=== PATIENT | male | born 1975 | race Caucasian/White ===

== ENCOUNTER 2025-02-14 11:25 | Emergency (ER) | payer MEDICAID, SELFPAY ==
--- NOTE | ~2025-02-14 | XR_ITS ---
EXAMINATION: XR CHEST CLINICAL INFORMATION: chest pain COMPARISON: July 02, 2012 TECHNIQUE: 2 views of the chest were obtained. FINDINGS: Hyperinflated lungs. Bilateral apical lung scarring. No consolidation, pleural effusion or pneumothorax. Cardiomediastinal silhouette size is normal. Mild multilevel thoracic spondylosis. XR/XR chest 2V IMPRESSION: No acute airspace disease. . Electronically signed by: Abhishek Maurer MD 02/14/2025 12:49 PM EDT
[2025-02-14 12:06] VITALS: BP 171/91; PULSE 103; RESP 18; TEMP 36.5; O2SAT 98; BMI 17.9
--- NOTE | 2025-02-14 12:09 | ED.GENADULT ---
HPI - General Adult General Chief complaint: Chest Pain Stated complaint: under left arm pain Related Data Allergies Allergy/AdvReac Type Severity Reaction Status Date / Time shellfish derived Allergy Unknown Anaphylaxis, Verified 02/14/25 12:08 Itching, Swelling PMFSH Social History Social History Advance Directives: No Advance Directives Information Provided: No Physical Exam ED Vital Signs: Vital Signs - 24 hr 02/14/25 12:06 Temperature 97.7 F Pulse Rate 103 H Respiratory Rate 18 Blood Pressure 171/91 H Pulse Oximetry 98 Oxygen Delivery Method Room Air BMI result Body Mass Index 17.9 Course Course Course Narrative: RME performed by Juliet Louie PA-C. Patient is a 49 year old assigned male at presenting to the emergency department with severe left axillary pain. Patient states he had a sudden episode of left axillary pain that caused him to be cool and clammy that has now resolved. Patient's limited physical exam performed in triage showed a comfortable individual in no acute distress, normal sounding voice, no respiratory distress. Detailed physical exam and review of systems are deferred to the electrical systems design engineer. EKG, labs, imaging, and swabs ordered. Patient placed back in the waiting room pending room availability and results. Patient left without completing treatment. Patient's blood work was unremarkable. Patient's EKG was unremarkable. Patient left the department without completing treatment. Patient left the department before myself or any of the other emergency department clinicians could explain to or review with the patient; physical exam findings, test results, need or lack there of for additional testing, need or lack there of for a procedure to be performed, need or lack there of for hospital admission / transfer, need or lack there of for prescription medication, treatment options, or a treatment plan. Medical Decision Making Lab Data 02/14/25 12:20 02/14/25 12:20 Labs: Lab Results 02/14/25 Range/Units 12:20 WBC 5.0 (4.8-10.8) X10*3/uL RBC 4.74 (4.60-5.80) X10*6/uL Hgb 14.1 (14.0-18.0) g/dl Hct 41.8 L (42.0-52.0) % MCV 88.2 (80.0-98.0) fL MCH 29.7 (27.0-33.0) pg MCHC 33.7 (31.0-36.0) g/dl RDW 13.9 (11.0-16.0) % Plt Count 223 (160-400) X10*3/uL MPV 8.5 L (9.4-12.4) fL Immature Gran % (Auto) 0.4 (0.0-0.4) % Neut % (Auto) 51.0 (45-73) % Lymph % (Auto) 37.3 (20-40) % Bracken % (Auto) 8.3 (2-11) % Eos % (Auto) 2.4 (0-4) % Baso % (Auto) 0.6 (0-2) % Lymph # (Auto) 1.9 (1.2-4.9) X10*3/uL Bracken # (Auto) 0.4 (0.1-1.2) X10*3/uL Eos # (Auto) 0.1 (0.0-0.4) X10*3/uL Baso # (Auto) 0.0 (0.0-0.2) X10*3/uL Abs Immat Gran (auto) 0.02 (0.00-0.03) X10*3/uL Absolute Neuts (auto) 2.5 (2.0-8.3) x10*3/uL Absolute Nucleated RBC 0.000 (0.0-0.012) X10*3/uL Nucleated RBC % (auto) 0.0 (0.0-0.2) /100WBC PT 14.6 H (10.9-12.4) SEC INR 1.3 H (0.9-1.1) Sodium 138 (135-145) mmol/L Potassium 3.7 (3.3-5.1) mmol/L Chloride 104 (96-108) mmol/L Carbon Dioxide 28 (22-29) mmol/L Anion Gap 10 L (12-20) BUN 15 (9-16) mg/dL Creatinine 0.91 (0.5-1.4) mg/dL Estim Creat Clear Calc 81.3 Estimated GFR > 60 Random Glucose 101 (60-115) mg/dL Calcium 9.1 (8.4-10.2) mg/dL Magnesium 2.0 (1.6-2.6) mg/dL Total Bilirubin 0.4 (0.0-1.0) mg/dL AST 32 (5-37) U/L ALT 15 (0-40) U/L Alkaline Phosphatase 62 (39-117) U/L Troponin I High Sens < 2.7 (<3.5-35.0) ng/L Total Protein 7.0 (6.5-8.0) g/dL Albumin 4.2 (3.5-5.0) g/dL Influenza Type A (PCR) NEGATIVE (Negative) Influenza Type B (PCR) NEGATIVE (Negative) RSV RNA Qual (PCR) NEGATIVE (Negative) SARS-CoV-2 RNA (RT-PCR) NEGATIVE (Negative) Discharge Plan Discharge Clinical Impression: Armpit pain Patient Disposition: Left W/O Completing Treatment Discharge Date/Time: 02/14/25 19:32
--- NOTE | 2025-02-14 12:10 | ECG_ITS ---
Test Reason : CHEST PAIN Blood Pressure : */* mmHG Vent. Rate : 70 BPM Atrial Rate : 70 BPM P-R Int : 162 ms QRS Dur : 88 ms QT Int : 386 ms P-R-T Axes : 84 88 55 degrees QTcB Int : 416 ms Normal sinus rhythm Septal infarct , age undetermined Abnormal ECG When compared with ECG of 10-Jul-2012 04:07, changes of septal infarct present Referred By: Generic ED Physician Electronically Signed By: DANIA GUSTAFSON
[2025-02-14 12:21] LABS: MANUAL DIFF FLAG NO
[2025-02-14 12:24] LABS: Basophils Percent Auto 0.6 % (0-2); Eosinophils Absolute Auto 0.1 X10*3/uL (0.0-0.4); Eosinophils Percent Auto 2.4 % (0-4); Hematocrit 41.8 % (42.0-52.0); Hemoglobin 14.1 g/dl (14.0-18.0); Imm Gran Abs Auto 0.02 X10*3/uL (0.00-0.03); Imm Gran Pct Auto 0.4 % (0.0-0.4); Lymphocytes Absolute Auto 1.9 X10*3/uL (1.2-4.9); Lymphocytes Percent Auto 37.3 % (20-40); Mean Corpuscular HGB Conc 33.7 g/dl (31.0-36.0); Mean Corpuscular Hemoglobin 29.7 pg (27.0-33.0); Mean Corpuscular Volume 88.2 fL (80.0-98.0); Mean Platelet Volume 8.5 fL (9.4-12.4); Monocytes Absolute Auto 0.4 X10*3/uL (0.1-1.2); Monocytes Percent Auto 8.3 % (2-11); Neutrophils Absolute Auto 2.5 x10*3/uL (2.0-8.3); Platelet Count 223 X10*3/uL (160-400); Red Blood Count 4.74 X10*6/uL (4.60-5.80); Red Cell Distribution Width 13.9 % (11.0-16.0)
[2025-02-14 12:30] LABS: INTERNATIONAL NORM RATIO 1.3 (0.9-1.1); Prothrombin Time 14.6 SEC (10.9-12.4)
[2025-02-14 12:48] LABS: Alanine Aminotransferase 15 U/L (0-40); Albumin Level 4.2 g/dL (3.5-5.0); Alkaline Phosphatase 62 U/L (39-117); Anion Gap 10 (12-20); Aspartate Amino Transferase 32 U/L (5-37); Bilirubin Total 0.4 mg/dL (0.0-1.0); Blood Urea Nitrogen 15 mg/dL (9-16); Calcium 9.1 mg/dL (8.4-10.2); Carbon Dioxide 28 mmol/L (22-29); Chloride 104 mmol/L (96-108); Creatinine Clr Calc Pharmacy 81.3; Estimated Glomerular Filt Rate > 60; Glucose Random 101 mg/dL (60-115); Potassium 3.7 mmol/L (3.3-5.1); Sodium 138 mmol/L (135-145)
[2025-02-14 12:55] LABS: Troponin-I High Sensitivity < 2.7 ng/L (<3.5-35.0)
[2025-02-14 13:02] LABS: Influenza A PCR NEGATIVE (Negative); Influenza B PCR NEGATIVE (Negative); Resp Syncy Virus RNA Qual PCR NEGATIVE (Negative); SARS COV2 PCR INHOUSE NEGATIVE (Negative)
--- OUTSIDE RECORDS SUMMARY | 2025-02-14 19:27 | XMS_ITS | Data Portability ---
Author Organization [place] - [employer] [facility], [facility] Cloth Beamer Address [address] [facility] [place] [address] Care Team Providers Care Timber Packer Name Role Phone KALPESH MOONEY Primary Care Provider Assessment No assessment recorded. Plan of Treatment Reminders Order Date Submit Date Provider Last Modified By Organization Details Last Modified Time Details Appointments None recorded. Lab lyme igg + igm Ab, western blot, serum 2015 016 [facility] (Lab), [address] [place], [address], 6 16:03:24 lyme disease C6 peptide Ab, serum 2015 016 [facility] (Lab), [address] [place], [address], 6 11:31:46 tick-borne disease panel 2015 016 john nicole [facility] (Lab), [address] [place], [address], 6 14:50:00 PSA, serum or plasma 2015 016 [facility] (Lab), [address] [place], [address], 6 14:50:10 CBC 2015 016 [facility] (Lab), [address] [place], [address], 6 16:55:12 CMP, serum or plasma 2015 016 [facility] (Lab[facility] [address] [facility] [address], [place], [address], 6 17:17:52 culture, urine 2015 016 [facility] (Lab), [address] [facility] [address], [place], [address], 6 11:46:03 urinalysis, microscopic 2015 016 john nicole [facility] (Lab), [address], [place], [address], 6 14:50:00 TSH, serum or plasma 2015 016 [facility] (Lab), [address] [facility] [address], [place], [address], 6 17:17:55 vitamin B12, serum 2015 016 [facility] (Lab), [address] [facility] [address], [place], [address], 6 17:17:54 vitamin B1 (thiamine), serum 2015 016 [facility] (Lab), [address], [place], [address], 6 10:07:49 vitamin D, 25-hydroxy, total, serum 2015 016 [facility] (Lab), [address] [facility] [address], [place], [address], 6 17:17:56 HbA1c (hemoglobin A1c), blood 2015 016 [facility] (Lab), [address], [place], [address], 6 18:02:33 lipid panel, serum 2015 016 [facility] (Lab), [address], [place], [address], 6 17:17:53 Referral neurologist referral - 41 y/o male with chronic neck pain and finger numbness, abnormal neck XR, insurance denied MRI would appreciate evaluation. 2015 016 [facility] Neurology, [address] [place], [address], 7 11:43:53 Procedures None recorded. Surgeries None recorded. Imaging MRI, cervical spine, w/o contrast - 41 y/o male with several years of chronic neck pain with BUE numbness and pain intermitten tly, xrays with degenerativ e disc disease at C45-6, please evaluate. [address] (Radiology), [address] [place], [address], 6 14:18:00 x-ray, cervical spine, complete - 41 y/o make with chronic neck pain, concern for spinal stenosis, please evaluate. [address] (Radiology), [address] [place], [address], 6 07:46:36 Medication Orders sumatriptan 50 mg tablet 2015 016 [id number], [address], [place], [id number], 6 04:18:30 ondansetron 4 mg disintegrat ing tablet 2015 016 [facility], [address], [place], [id number], 6 04:16:59 ergotamine 1 mg-caffeine 100 mg tablet 2015 016 [facility], [address], [place], [id number], 6 04:16:49 ibuprofen 800 mg tablet 2015 016 [id number], [address], [place], [id number], 6 04:16:57 Flomax 0.4 mg capsule 2015 016 [email or web address], [address], [place], [id number], 6 10:40:51 Patient TargetsNo targets recorded. Patient Instructions Encounter Date Encounter Id Patient Instructions Last Modified By Organization Details Last Modified Time 08/01/2016 [id number] Will return to office if symptoms do not improve with treatment. Requested Rx for ibuprofen. Has appt with in 4 days. Note given for work. [email or web address] Not available 08/01/2016 11:53:25 Reason for Referral Neurologist Referral for Chr onic neck pain 41 y/o male with chronic neck pain and finger numbness, abnormal neck XR, insurance denied MRI would appreciate evaluation. Referring Physician: Kalpesh Mooney, Family Medicine, Encounter Date: 05/06/2016 Results Created Date Observation Date Name Description Value Unit Range Abnormal Flag Note LastModifiedBy Organization Detail LastModifiedTime 05/06/20 16 05/06/2016 urina lysis , dipst ick urine color YELLOW yellow normal Not Available [address] [facility] Drawing Station [address] [place] [address], [address], 05/06/2016 16:44:16 05/06/2005/06/2016 urina lysis , dipst ick urine clarity CLEAR clear normal Not Available [address] [facility] [address] Drawing Station [address] [place] [address], [address], 05/06/2016 16:44:16 05/06/2005/06/2016 urina lysis , dipst ick urine glucose NEGATI VE negati ve normal Not Available [address] [facility] [facility] [address] [place] [address], [address], 05/06/2016 16:44:16 05/06/20 16 05/06/2016 urina lysis , dipst ick urine ketone NEGATI VE negati ve normal Not Available [address] [place] [address], [address], 05/06/2016 16:44:16 05/06/2005/06/2016 urina lysis , dipst ick urine protein NEGATI VE negati ve normal Not Available [address] [place] [address], [address], 05/06/2016 16:44:16 05/06/2005/06/2016 urina lysis , dipst ick urine nitrate NEGATI VE negati ve normal Not Available [address] [place] [address], [address], 05/06/2016 16:44:16 05/06/2005/06/2016 urina lysis , dipst ick urine bilirubin NEGATI VE negati ve normal Not Available [address] [place] [address], [address], 05/06/2016 16:44:16 05/06/2005/06/2016 urina lysis , dipst ick urine hemoglobin NEGATI VE negati ve normal Not Available [address] [place] [address], [address], 05/06/2016 16:44:16 05/06/2005/06/2016 urina lysis , dipst ick urine specific gravity 1.022 1.001> 1.030 normal Not Available [address] [place] [address], [address], 05/06/2016 16:44:16 05/06/2005/06/2016 urina lysis , dipst ick urine pH 6.5 4.5-8. 5 normal Not Available [address] [place] [address], [address], 05/06/2016 16:44:16 05/06/2005/06/2016 urina lysis , dipst ick urine urobilinogen 0.2 E.U./ dL 0.2-1. 0 normal Not Available [address] [place] [address], 29[address], 05/06/2016 16:44:16 05/06/20 16 05/06/2016 urina lysis , dipst ick urine leukocyte esterase NEGATI VE negati ve normal Not Available [address] [place] [address], 8[address], 05/06/2016 16:44:16 05/06/20 16 05/06/2016 CBC WBC count 3.9 K/mm3 4.0-11 .0 low Not Available [address] [place] [address] Draw[address] [place] [address], [address], 05/06/2016 16:55:12 05/06/2005/06/2016 CBC red blood cell count 4.28 M/uL 4.20-5 .80 normal Not Available [address] [place] [address], [address], 05/06/2016 16:55:12 05/06/20 16 05/06/2016 CBC hemoglobin 12.7 gm/dL 13.0-1 7.3 low Not Available [address] [place] [address], [address], 05/06/2016 16:55:12 05/06/2005/06/2016 CBC hematocrit 39.6 % 40.0-5 4.0 low Not Available [address] [place] [address], [address], 05/06/2016 16:55:12 05/06/2005/06/2016 CBC MCV 92.6 fL 84-99 normal Not Available [address] [place] [address], [address], 05/06/2016 16:55:12 05/06/2005/06/2016 CBC RDW 13.9 % 11.5-1 6.0 normal Not Available [address] [place] [address], [address], 05/06/2016 16:55:12 05/06/2005/06/2016 CBC plt count 240 K/uL 140-44 0 normal Not Available [address] [place] [address] [place] [address], [address], 05/06/2016 16:55:12 05/06/20 16 05/06/2016 CBC ne# 2.2 K/uL 1.5-7. 5 normal Not Available [address] [place] [address] Drawing Station [address] [place] [address], [address], 05/06/2016 16:55:12 05/06/2005/06/2016 CBC ly# 1.4 K/uL 1.0-4. 5 normal Not Available [address] [place] [address] Drawing [address] [place] [address], [address], 05/06/2016 16:55:12 05/06/2005/06/2016 CBC MO# 0.2 K/uL 0.0-0. 8 normal Not Available [address] [place] [address] Drawing Station [address] [place] [address], [address], 05/06/2016 16:55:12 05/06/2005/06/2016 CBC eo# 0.1 K/uL 0.0-0. 4 normal Not Available [address] [place] [address] Drawing [address] [place] [address], 36[address], 05/06/2016 16:55:12 05/06/2005/06/2016 CBC ba# 0.0 K/uL 0.0-0. 2 normal Not Available [address] [place] [address] Drawing [address] [place] [address], 378[address], 05/06/2016 16:55:12 05/06/2005/06/2016 CBC ne% 55.1 % normal Not Available [address] [place] [address] Drawing [address] [place] [address], 320[address], 05/06/2016 16:55:12 05/06/2005/06/2016 CBC ly% 36.0 % normal Not Available [address] [place] [address] Draw[address] [place] [address], [address], 05/06/2016 16:55:12 05/06/20 16 05/06/2016 CBC MO% 6.2 % normal Not Available [address] [place] [address] Draw[address] [place] [address], [address], 05/06/2016 16:55:12 05/06/20 16 05/06/2016 CBC eo% 1.9 % normal Not Available [address] [place] [address], [address], 05/06/2016 16:55:12 05/06/20 16 05/06/2016 CBC ba% 0.8 % normal Not Available [address] [place] [address], [address], 05/06/2016 16:55:12 05/06/20 16 05/06/2016 CMP, serum or plasm a glucose 69 mg/dL 70-109 low Not Available [address] [place] [address], [address], 05/06/2016 17:17:52 05/06/20 16 05/06/2016 CMP, serum or plasm a BUN 17 mg/dL 6-21 normal Not Available [address] [place] [address], [address], 05/06/2016 17:17:52 05/06/20 16 05/06/2016 CMP, serum or plasm a creatinine 0.87 mg/dL 0.0-1. 3 normal Not Available [address] [place] [address], [address], 05/06/2016 17:17:52 05/06/20 16 05/06/2016 CMP, serum or plasm a glomerular filtration rate > 60 normal Units : mL/mi n/1.7 3 m2 Estim ated GFR (eGFR ) shoul d not be used for patie nts with acute kidne y injur y or ESRD (crea tinin e shoul d be at stead y state and stabl e to use). eGFR is calcu lated using the 2009 CKD-E PI creat inine equat ion, which is now the recom caitlin d equat ion to estim ate GFR based on creat inine per lates t KDIGO (Kidn ey Disea se Impro ving Globa l Outco mes) Guide lines . KDIGO recom mends CKD now be class ified based on cause , GFR categ ory, and album inuri a categ ory. GFR categ ories will not be repor griffin by the lab for G1 or G2 (eGFR >60). GFR categ ories sherylul d be assig filemon as: eGFR 45-59 = G3a (mild ly to moder ately decre ased) , eGFR 30-44 = G3b (mode ratel y to sever elisa decre ased) , eGFR 15-29 G4 (ross rely decre ased) , eGFR< 15 G5 (kidn ey failu re). Not Available [address] [place] [address] Drawing [address] [place] [address], [address], 05/06/2016 17:17:52 05/06/20 16 05/06/2016 CMP, serum or plasm a calcium 8.6 mg/dL 8.3-9. 9 normal Effec tive 5: Pleas e note the refer ence range for this test has rodriguez ed. Not Available [address] [place] [address], [address], 05/06/2016 17:17:52 05/06/2005/06/2016 CMP, serum or plasm a total protein 6.7 g/dL 6.2-8. 2 normal Effec tive 5: Pleas e note the refer ence range for this test has rodriguez ed. Exact pedia tric range s are not estab lishe d, but tend to be lower than adult range s. Not Available [address] [place] [address], [address], 05/06/2016 17:17:52 05/06/2005/06/2016 CMP, serum or plasm a albumin 3.9 g/dL 2.9-4. 7 normal Effec tive 015: The Album in metho d rodriguez ed from a BCG to a BCP metho d. Resul ts will be appro ximat elisa 0.4 g/dL lower than the old metho d. Plefarzaneh e note the rodriguez e in the refer ence range . Not Available [address] [place] [address] Drawing [address] [place] [address], 349[address], 05/06/2016 17:17:52 05/06/20 16 05/06/2016 CMP, serum or plasm a alkaline phosphatase 56 IU/L 18-210 normal Not Available [address] [place] [address], 9[address], 05/06/2016 17:17:52 05/06/20 16 05/06/2016 CMP, serum or plasm a SGOT (AST) 35 IU/L 15-37 normal Effec tive 5: Keyonna garrison note the refer ence range for this test has rodriguez ed. Not Available [address] [place] [address], 76189, 05/06/2016 17:17:52 05/06/2005/06/2016 CMP, serum or plasm a bilirubin total 0.3 mg/dL 0.2-1. 3 normal Not Available [address] [place] [address], 67538, 05/06/2016 17:17:52 05/06/2005/06/2016 CMP, serum or plasm a SGPT (ALT) 26 IU/L 16-61 normal Not Available [address] [place] [address], [address], 05/06/2016 17:17:52 05/06/2005/06/2016 CMP, serum or plasm a sodium 140 mEq/L 135-14 5 normal Not Available [address] [place] [address], 62833, 05/06/2016 17:17:52 05/06/2005/06/2016 CMP, serum or plasm a potassium 4.1 mEq/L 3.5-5. 1 normal Not Available [address] [place] [address], 63201, 05/06/2016 17:17:52 05/06/2005/06/2016 CMP, serum or plasm a chloride 103 mEq/L 98-112 normal Not Available [address] [place] [address], 57499, 05/06/2016 17:17:52 05/06/2005/06/2016 CMP, serum or plasm a CO2 28 mEq/L 20-32 normal Not Available [address] [place] [address], 66956, 05/06/2016 17:17:52 05/06/2005/06/2016 CMP, serum or plasm a anion gap 9 mEq/L 5-15 normal Not Available [address] [place] [address], [address], 05/06/2016 17:17:52 05/06/2005/06/2016 lipid panel , serum cholesterol 160 mg/dL normal JOSE ABLE <200 Jose able 200-2 39 Borde rline High >=240 High Not Available [address] [place] [address], 73929, 05/06/2016 17:17:53 05/06/2005/06/2016 lipid panel , serum triglyceride 62 mg/dL normal CRISTIANO L <=150 Cristiano l 150-1 99 Borde rline High 200-4 99 High >=500 Very High Not Available [address] [place] [address], 76295, 05/06/2016 17:17:53 05/06/2005/06/2016 lipid panel , serum HDL 65 mg/dL normal OPTIM AL <40 Low >=60 Optim al Not Available [address] [place] [address], 63377, 05/06/2016 17:17:53 05/06/2005/06/2016 lipid panel , serum calculated LDL 83 mg/dL normal OPTIM AL <100 Optim al 100-1 29 Near optim al 130-1 59 Borde rline High 160-1 89 High >=190 Very High The above class ifica tions are based on the recom menda tions of the NCEP Exper t Panel , (ATP III, 2001) . Not Available [address] [place] [address], 66071, 05/06/2016 17:17:53 05/06/2005/06/2016 vitam in B12, serum vitamin B12 311 pg/mL 193-98 6 normal Effec tive 5: Keyonna garrison note the refer ence range for this test has rodriguez ed. Not Available [address] [place] [address], 15251, 05/06/2016 17:17:54 05/06/20 16 05/06/2016 T4, free, serum thyroxine (T4) free 0.85 NG/dL 0.70-1 .65 normal Effec tive 16: Keyonna garrison note the refer ence range for this test has rodriguez ed. Not Available [address] [place] [address], 76932, 05/06/2016 17:17:54 05/06/20 16 05/06/2016 TSH, serum or plasm a thyroid stimulating hormone 3.86 uIU/m L 0.36-3 .74 high Effec tive 5: Keyonna garrison note the refer ence range for this test has rodriguez ed. Not Available [address] [place] [address], 72448, 05/06/2016 17:17:55 05/06/20 16 05/06/2016 vitam in D, 25-hy droxy , total , serum vitamin D, 25 hydroxy 34 NG/mL 30-100 normal Not Available [address] [place] [address], 66[address], 05/06/2016 17:17:55 05/06/20 16 05/06/2016 glyco hemog lobin , total , blood glycohemoglo bin (A1C) 5.6 %A1C 4.2-6. 3 normal Effec tive 5: Keyonna garrison note the refer ence range for this test has michael ed. Not Available [address] [place] [address], 50561, 05/06/2016 18:02:33 05/06/20 16 05/06/2016 glyco hemog lobin , total , blood estimated mean plasma glucose 114 mg/dL normal : Calcu latio n of mean gluco se from Hemog lobin A1C has been behzad ed per new guide lines from the Ameri can [employer] i[employer] n. Not Available [address] [place] [address] Drawing [address] [place] [address], 76320, 05/06/2016 18:02:33 05/06/20 16 05/08/2016 cultu re, urine colony count < 1,000 COL/ML Not Available [address] [place] [address] Drawing [address] [place] [address], 49132, 05/08/2016 07:55:33 05/06/20 16 05/08/2016 cultu re, urine urine culture NO GROWTH AFTER 2 DAYS Not Available [address] [place] [address] Drawing Station [address] [place] [address], 29664, 05/08/2016 07:55:33 05/06/20 16 05/09/2016 PSA, serum or plasm a prostatic specific Ag 0.36 NG/mL 0-4 normal PSA was perfo rmed using the ACCES SII Immun oassa y metho d. Value s obtai filemon from diffe rent assay metho ds canno t be used inter rodriguez eably . PSA level s, regar dless of value , shoul d not be inter prete d as absol jaren evide nce of the prese nce or absen ce of disea se. Not Available [address] [place] [address] Drawing Station [address] [place] [address], 789[address], 05/09/2016 14:50:10 05/06/20 16 05/09/2016 lyme with ehrli audrey & babes ia lyme total Ab (IgG+IgM), serum NEGATI VE negati ve normal No antib sheri to Borre ytson Burgd orfer i detec griffin. False negat ron may occur . Sugge st repea t if clini josue indic ated. Not Available [address] [place] [address] Drawing Station [address] [place] [address], 25[address], 05/09/2016 14:50:11 05/06/20 16 05/09/2016 lyme with ehrli audrey & babes ia babesia microti DNA PCR NOT DETECT ED not detect d normal Negat deanne resul ts indic ate the absen ce of detec table Babes ia micro ti DNA from this speci men, but it does not exclu de the prese nce of the organ ism or activ e or recen t babes iosis . A negat deanne resul t in a patie nt with tick- borne disea se sympt oms may indic ate infec tion with an organ ism not detec griffin by this test. The resul ts of this test shoul d not be used as the sole basis for diagn osis, treat ment, or other manag ement decis ions. Resul ts must be corre lated with the clini stanislav findi ngs, epide miolo gical data, and other data avail able to the clini carson evalu ating the patie nt. This test was devel oped and its perfo rmanc e cuate cteri stics deter mined by [facility]. It has not been clear ed or appro stanley by the FDA. The labor atory is regul ated under CLIA as quali fied to perfo rm high- compl exity testi ng. This test is used for clini stanislav purpo ses. It shoul d not be regar ded as inves tigat ional or for resea [facility]. Not Available [address] [place] [address] [address] [place] [address], [place], [address], 05/09/2016 16:17:49 05/06/20 16 05/09/2016 lyme with ehrli audrey & babes ia A. phagocytophi lum DNA NOT DETECT ED not detect d normal Negat deanne resul ts indic ate the absen ce of detec table DNA from Anapl asma phago cytop hilum in speci mens, but it does not exclu de the prese nce of the organ ism or activ e or recen t anapl asmos is. A negat deanne resul t in a patie nt with tick- borne disea se sympt oms may indic ate infec tion with an organ ism not detec griffin by this test. The resul ts of this test shoul d not be used as the sole basis for diagn osis, treat ment, or other manag ement decis ions. Resul ts must be corre lated with the clini stanislav findi ngs, epide miolo gical data, and other data avail able to the clini carson evalu ating the patie nt. This test was devel oped and its perfo rmanc e cuate cteri stics deter mined by [facility]. It has not been clear ed or appro stanley by the FDA. The labor atory is regul ated under CLIA as quali fied to perfo rm high- compl exity testi ng. This test is used for clini stanislav purpo ses. It shoul d not be regar ded as inves tigat ional or for resea rch. Not Available [address] [place] [address] Drawing [address] [place] [address], 09275, 05/09/2016 16:17:49 05/06/20 16 05/09/2016 lyme with ehrli audrey & babes ia lyme total Ab (IgG+IgM), serum NEGATI VE negati ve normal No antib sheri to Borre tyson Burgd orfer i detec griffin. False negat ron may occur . Sugge st repea t if clini josue indic ated. Not Available [address] [place] [address] Drawing Station [address] [place] [address], 31694, 05/09/2016 16:17:49 05/06/20 16 05/10/2016 lyme disea se C6 pepti de Ab, serum lyme disease C6 Ab () normal NO ANTIB SHERI TO BORRE LLIA BURGD ORFER I DETEC GRIFFIN. PATIE NTS IN EARLY STAGE S OF INFEC TION OR WHO WERE GIVEN EARLY ANTIB IOTIC TREAT MENT MAY NOT PRODU CE DETEC TABLE LEVEL S OF ANTIB SHERI. THESE PATIE NTS WOULD BENEF IT FROM REPEA T TESTI NG IN 2 TO 4 WEEKS . REFER ENCE RANGE : NEGAT DEANNE Testi ng perfo rmed at or repor griffin by Jeanie brown Refer ence Labor atori es, a [facility], [address] [place] [address] CLIA [id number] Romelia jacobson MD, PhD, Medic al Direc tor Not Available [address] [place] [address] Draw[address] [place] [address], 81110, 05/10/2016 11:31:46 05/06/20 16 05/11/2016 vitam in B1 (thia mine) , serum vit B1 thiamine, plasma (hplc) 9 nmol/ L 8-30 normal THIS TEST WAS PERFO RMED AT: [facility] EDMUND ALCAZAR [address] [facility] [place], [place] [address] PATRI JASON TOLEDO MD,P HD Not Available [address] [place] [address] Draw[address] [place] [address], 048[address], 05/11/2016 10:07:49 05/06/20 16 05/11/2016 lyme igg + igm Ab, weste rn blot, serum 18kDa IgG NONREA CTIVE nonrea ctive normal Not Available [address] [place] [address], 65795, 05/11/2016 16:03:24 05/06/20 16 05/11/2016 lyme igg + igm Ab, weste rn blot, serum 23kDa IgG NONREA CTIVE nonrea ctive normal Not Available [address] [place] [address], 78624, 05/11/2016 16:03:24 05/06/20 16 05/11/2016 lyme igg + igm Ab, weste rn blot, serum 28kDa IgG NONREA CTIVE nonrea ctive normal Not Available [address] [place] [address], 07189, 05/11/2016 16:03:24 05/06/20 16 05/11/2016 lyme igg + igm Ab, weste rn blot, serum 30kDa IgG NONREA CTIVE nonrea ctive normal Not Available [address] [place] [address], 24233, 05/11/2016 16:03:24 05/06/20 16 05/11/2016 lyme igg + igm Ab, weste rn blot, serum 39kDa IgG NONREA CTIVE nonrea ctive normal Not Available [address] [place] [address], 78159, 05/11/2016 16:03:24 06/24/20 16 05/11/2016 lyme igg + igm Ab, weste rn blot, serum 41kDa IgG REACTI VE nonrea ctive abnormal Not Available [address] [place] [address], 66180, 05/11/2016 16:03:24 05/06/20 16 05/11/2016 lyme igg + igm Ab, weste rn blot, serum 45kDa IgG NONREA CTIVE nonrea ctive normal Not Available [address] [place] [address], 28468, 05/11/2016 16:03:24 05/06/20 16 05/11/2016 lyme igg + igm Ab, weste rn blot, serum 58kDa IgG NONREA CTIVE nonrea ctive normal Not Available [address] [place] [address], 91735, 05/11/2016 16:03:24 05/06/20 16 05/11/2016 lyme igg + igm Ab, weste rn blot, serum 66kDa IgG NONREA CTIVE nonrea ctive normal Not Available [address] [place] [address], 37841, 05/11/2016 16:03:24 05/06/20 16 05/11/2016 lyme igg + igm Ab, weste rn blot, serum 93kDa IgG NONREA CTIVE nonrea ctive normal Not Available [address] [place] [address], 53711, 05/11/2016 16:03:24 05/06/2005/11/2016 lyme igg + igm Ab, weste rn blot, serum interpretati on IgG NEGATI VE negati ve normal IgG weste rn blots which have 5 (or more) of the 10 signi fican t bands are consi dered posit deanne for speci fic antib sheri to B. burgd orfer i. (Proc rodolfo grigsby of the 2nd Conf. on Lyme Disea se, [facility] [place], 1994. ) Not Available [address] [place] [address], 37864, 05/11/2016 16:03:24 05/06/20 16 05/11/2016 lyme igg + igm Ab, weste rn blot, serum 23kDa IgM NONREA CTIVE nonrea ctive normal Not Available [address] [place] [address], 96770, 05/11/2016 16:03:24 05/06/20 16 05/11/2016 lyme igg + igm Ab, weste rn blot, serum 39kDa IgM NONREA CTIVE nonrea ctive normal Not Available [address] [place] [address], [id number], 05/11/2016 16:03:24 05/06/20 16 05/11/2016 lyme igg + igm Ab, weste rn blot, serum 41kDa IgM NONREA CTIVE nonrea ctive normal Not Available [address] [place] [address], [id number], 05/11/2016 16:03:24 05/06/20 16 05/11/2016 lyme igg + igm Ab, weste rn blot, serum interpretati on IgM NEGATI VE negati ve normal IgM weste rn blots which have 2 (or more) of the 3 signi fican t bands are consi dered posit deanne for speci fic antib sheri to B. burgd orfer i. (Proc rodolfo grigsby of the 2nd Conf. on Lyme Disea se, [place], [place], 1993. ) Not Available [address] [place] [address], [id number], 05/11/2016 16:03:24 05/06/20 16 05/11/2016 lyme igg + igm Ab, weste rn blot, serum lyme WB interpretati on IgG Neg, IgM Neg normal Not Available [address] [place] [address], [id number], 05/11/2016 16:03:24 05/06/20 16 05/11/2016 lyme igg + igm Ab, weste rn blot, serum reviewed by Alondra Leyva MD normal Not Available [address] [place] [address], [id number], 05/11/2016 16:03:24 04/04/20 16 04/01/2016 C-spi ne (min 4vws) xr [facility] DIAGNO STIC IMAGIN G DEPART MENT [address] [place] [address] [place]. [address] - Patien t: ROC DALY Phone: Exam Date:0 6 Exam: C-SPIN E (MIN 4VWS) XR Attend kit Butler:Je CASTELLANO MD :03/04 Age/Se x: 41/M Orderi stephany Butler:Je CASTELLANO MD E.DChandrakant Attend kit Butler: Gurvinder Butler: KALPESH MOONEY MD X-Ray #: [id number] Locati on: RAD.BE Other Locati on: Clinic al Histor y: ONGOIN G CHRONI C NECK PAIN C-SPIN E (MIN 4VWS) XR 016 11:54 AM Compar kathia: None Techni que: AP, latera l, odonto id, and bilate ral obliqu e views of the cervic al spine. FINDIN GS: Verteb ral alignm ent is mainta ined. The cranio cervic al juncti on appear s normal . There are no acute fractu res or focal osseou s lesion s. The surrou nding soft tissue s appear normal . Mild degene rative disc diseas e change s noted at C5-6 where there is disc space narrow ing and small parave rtebra l osteop hytes. No signif icant neurof oramin al stenos is IMPRES GUEVARA: No acute fractu re or sublux ation. Degene rative disc diseas e at C5-6. Assess ment for spinal canal stenos is would be better accomp lished with either CT or MRI of the cervic al spine. Statio n: [id number] Access ion Number : [id number] Transc ribed by: PS Interp reting Physic kate: MATILDA BUSH MD Electr onical ly Signed by: MATILDA BUSH MD on 1310 Rec'd in [facility] on : 1310 Techno logist : KM Exam CPT #: 20593, Order #: [id number] Report #: [id number] [facility] Rec#:[id number] Report Status : Signed art [facility] (Radiology) [address] [place] [address], [place], [address], 04/14/2016 07:46:36 Result Notes None recorded. Problems Name Problem SNOMED Code Status Onset Date Resolution Date Notes Provider Name and Address Organization Details Recorded Time Opioid dependen ce 75084582 Active On suboxone . Kalpesh Mooney MD [address] [place] [address], [phone], [facility] [employer] 6 11:19:14 Tobacco dependen ce syndrome 56466305 Active Still smoking. Kalpesh Mooney MD [address] [place] [address], [phone], [facility] [employer] 6 10:38:46 Chronic neck pain 72835193153 07 Active Neuro and EMG pending 07/2016 Kalpesh Mooney MD [address] [place] [address], [phone], [facility] [employer] 6 10:38:58 Benign prostati c hyperpla ignacia without outflow obstruct ion 558383117 Active Flomax Kalpesh Mooney MD [address] [place] [address], [phone], [facility] 6 10:38:49 Migraine 48793553 Active 07/2016 acute flare, resolved . Kalpesh Mooney MD [address] [place] [address], [phone], [facility] [employer] 6 10:22:07 Anxiety 77957772 Active Kalpesh Mooney MD [address] [place] [address], [phone], [facility] [employer] [facility] 6 11:19:14 Notes:MRI denied, left messa ge for patient to call and discuss. Will plan on EMG v. PT v. Ortho referral. Problem Notes None recorded. Procedures Surgical History None recorded. Imaging Results Imaging Date Name Status LastModified by Organiz benjamin Details LastModified Time 04/01/2016 C-spine (min 4vws) xr completed [address] (Radiology) [address] [place] [address], [id number], 04/14/2016 07:46:36 Procedure Notes None recorded. Medical Equipment None Reported. Allergies No known drug allergies Medications Name Sig Start Date Stop Date Status Note LastModified by Organization Details LastModified Time Flomax 0.4 mg capsule Take 1 capsule every day by oral route. 2015 active Not Available Not Available Not Avai lable ibuprofen 800 mg tablet Take 1 tablet 3 times a day by oral route as needed. 2015 active Not Available Not Available Not Avai lable ergotamine 1 mg-caffeine 100 mg tablet 1 tablet every 30 minutes as needed for migraine relief. Do not exceed 6 tablets a day or 10 tablets a week. 08/05 completed Not Available Not Available Not Available sumatriptan 50 mg tablet Take 1 or 2 tablets with first onset of migraine may repeat as needed every 2 hours, no more than 300 mg in 24 hours. Having daily migraine. 2015 active Not Available Not Available Not Avai lable amitriptyli ne 50 mg tablet TAKE 1 TABLET AT BEDTIME NEEDED FOR MIGRAINE 2015 active Not Available Not Available Not Avai lable ondansetron 4 mg disintegrat ing tablet Take 1 tablet every 8 hours by oral route as needed for 5 days. 2015 active Not Available Not Available Not Avai lable Suboxone 8 mg-[address] 1 film every day by sublingua l route. active Not Available Not Available No t Available Vitals Date Recorded Heart rate Body weight Body temperature Body height Body mass index (BMI) Systolic blood pressure Diastolic blood pressure Provider Name and Address Organization Details Last Updated DateTime 6 70 /min 79034.1 9284 g 97.6 [degF] 182.88 cm 17.9 kg/m2 104 mm[Hg] 88 mm[Hg] Riri Carpenter [place] - [employer] 6 10:09:51 Date Recorded Body weight Heart rate Respiratory rate Systolic blood pressure Diastolic blood pressure Provider Name and Address Organization Details Last Updated DateTime 04/05/2016 60094.1 5469 g 64 /min 16 /min 108 mm[Hg] 80 mm[Hg] Vanesa Menjivar LPN [facility] [employer] [facility] 6 11:10:15 Date Recorded Body height Body weight Body mass index (BMI) Body temperature Heart rate Systolic blood pressure Diastolic blood pressure Provider Name and Address Organization Details Last Updated DateTime 6 182.88 cm 58192.7 5 g 18.7 kg/m2 97.7 [degF] 64 /min 100 mm[Hg] 64 mm[Hg] Riri Carpenter [facility] [employer] [facility] 6 11:59:33 Date Recorded Body height Body weight Body mass index (BMI) Heart rate Systolic blood pressure Diastolic blood pressure Provider Name and Address Organization Details Last Updated DateTime 6 182.88 cm 71583.4 2 g 17.5 kg/m2 74 /min 130 mm[Hg] 86 mm[Hg] Arlet Peterson [facility] [employer] [facility] 6 11:40:19 Date Recorded Body height Body weight Body mass index (BMI) Body temperature Heart rate Systolic blood pressure Diastolic blood pressure Provider Name and Address Organization Details Last Updated DateTime 6 182.88 cm 72280.1 9 g 17.9 kg/m2 96.9 [degF] 63 /min 120 mm[Hg] 80 mm[Hg] Riri Carpenter [facility] [employer] [facility] 6 10:15:02 Social History Question Answer Notes LastModified by Organizat ion Details LastModified Time Tobacco Smoking Status Current Every Day Smoker [facility] [employer] [facility] 03/15/2016 11:16:31 Do You Have An Advance Directive? No [email or web address] Information not available 03/17/2016 What Is Your Level Of Alcohol Consumption? None Information not available 03/15/2016 How Many Years Have You Consumed Alcohol? 25 Rarely Information not available 04/05/2016 What Is Your Level Of Caffeine Consumption? Occasional Information not available 03/15/2016 How Much Tobacco Do You Chew? None Information not available 03/15/2016 Which Illicit Or Recreational Drugs Have You Used? 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 No Information not available 03/15/2016 Hard Of Hearing Or Deaf In One Or Both Ears? No Information not available 03/15/2016 Legally Blind In One Or Both Eyes? No Information not available 03/15/2016 Foreign Travel No Informatio n not available 03/15/2016 Have You Ever Experienced Any Trauma Such As A Sexual Assault, Domestic Violence, Combat Experience, A Sudden Of A Loved One, Or Anything That Made You Excessively Afraid? No Information not available 03/15/2016 Language Telugu Information no t available 03/15/2016 Country Of Origin [facility] Information not available 03/15/2016 Dietary Regular Information no t available 03/15/2016 Marital Status Single Informatio n not available 03/15/2016 How Many Children Do You Have? 2 Information not available 03/15/2016 Obese No Information no t available 04/05/2016 Overweight No Information no t available 04/05/2016 Seat Belts Used Routinely Yes Information not available 03/15/2016 Are You Sexually Active? Yes art Information not available 03/17/2016 Smoke Alarm In Home Yes Information not available 03/15/2016 At What Age Did You Start Smoking Tobacco? 8 Information not available 03/15/2016 Are You Passively Exposed To Smoke? Yes Information not available 04/05/2016 How Much Tobacco Do You Smoke? 0.25 PPD 3-5 Cigs Per Day Information not available 03/15/2016 General Stress Level Low Information not available 03/15/2016 Do You Use Sunscreen Routinely? Yes Information not available 03/15/2016 How Many Years Have You Smoked Tobacco? 30 Information not available 04/05/2016 Sex: Unknown Functional Status Question Answer Note LastModified by Organizat ion Details LastModified Time What is your exercise level? Occasional Information not available 03/15/2016 Mental Status None recorded. Family History Relationship Description Onset Age of this Age Resolved Age Notes LastModified by Organization Details LastModified Time Mother Alive pino Not available 11:19:19 Medical History Condition Response Gout N Gynecologic problems N Muscle, Joint, or Bone Problems Y Arthritis N Infertility N Cancer (of any kind) N Defects or Inherited Diseases N Stroke N Headache N Asthma, COPD, Breathing or Lung Disorder N Cardiac History, Heart Murmur, [place] N Skin Problems N Food or Environmental Allergies Y Bleeding Disorder N Neuropathy N Anxiety/Depression Y Hernia N Developmental or Behavioral Disorders N Blood Pressure High or Low N Breast Problem N Dizziness or Fainting N Anemia, Blood Clot, or Bleeding Disorder N Seizures or Convulsions N Eye or Vision Problems N Thyroid Problems N GI Problems N Diabetes N Bladder,Kidney Problems or Recurrent UTI 's N Prostate issues, ED or Sexual Problem N Insomnia N Cholesterol High or Low N Chronic Pain N Ear Nose & Throat (ENT) Problems N Osteoporosis N Liver Disease or Hepatitis N Past Encounters Encounter ID Performer Location Encounter Start Date Encounter Closed Date Diagnosis/Indication Diagnosis SNOMED-CT Code Diagnosis ICD10 Code Diagnosis Note [id number] Kalpesh Mooney MD [address] [address] 03/17/2016 09:50:15 03/17/2016 10:44:02 Chronic neck pain 9855275973 107 M54.2 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 Patient was never evaluated and self-medic ated with narcotics to the point of addiction. Pain is intermitte nt and associated with numbness of the finger tips, also intermitte nt. Exam unremarkab le. Will obtain Xrays then consider MRI v. EMG based on results. Benign pro static hyperplasia without outflow obstruction 667759436 N40.0 Several months of worsening urinary symptoms typical of BPH. Will check PSA and r/o infection. Plan on prostate exam at next appt. Trial flomax for relief. Cautioned regarding signs of hypotensio n. Screening for cardiovascular system disease 339887611 Z13.6 Opioid dependence 945853 00 F11.20 On suboxone since 02/2016. Became addicted after self-medic ating for chronic neck pain. Patient had recent negative infection testing that he will obtain for us. Tobacco de pendence syndrome 34366989 F17.290 Long history. 1ppd x 20 years, 1/4 ppd currently, 33 years total. Will revisit in the future. 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 Patient was never evaluated and self-medic ated with narcotics to the point of addiction. Pain is intermitte nt and associated with numbness of the finger tips, also intermitte nt. Exam unremarkab le previously . Xrays with degenerati ve disc disease at C5-6. Will proceed with MRI. -MRI C Spine -EMG v. ortho based on results -Patient declined PT or gabapentin at this time. -F/u based on results. [id number] Kalpesh Mooney MD [address] [address] 05/06/2016 11:07:09 05/06/2016 12:30:13 Benign prostatic hyperplasia without outflow obstruction 727516358 N40.0 Several months of worsening urinary symptoms typical of BPH. Patient has yet to get PSA or UA done, he will do so today. exam declined. Has had improvemen t in dribbling and stream with flomax but gets some urgency after taking. Declines further medication . Will continue current dosing. 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 Patient was never evaluated and self-medic ated with narcotics to the point of addiction. Pain is intermitte nt and associated with numbness of the finger tips, also intermitte nt. Exam unremarkab le previously . Xrays with degenerati ve disc disease at C5-6. Likely muscular tension 2/2 underlying injury. -MRI C Spine denied by insurance 04/2016. -EMG ordered but cannot be done until 08/2016-Re marshall to neurology- Patient declined PT or gabapentin previously [id number] Roula Snell Anp [address] [address] 08/01/2016 11:09:01 08/01/2016 12:17:36 Migraine 72536045 G43.909 [id number] Kalpesh Mooney MD [address] [address] 08/05/2016 09:55:07 08/05/2016 10:42:38 Benign prostatic hyperplasia without outflow obstruction 489194211 N40.0 Developed BPH symptoms in 2016. exam declined. 04/2016 PSA 0.36. UA WNL. Improvemen t with flomax. Incomplete but declines medication changes at this time. Will monitor. -Cont Flomax-Con bilingual loan processor finasterid e in the future if amenable. Migraine 81545858 G43.90 9 Ocular, classic symptoms. Recent flare with poor sleep due to work. Will trial PRN sumatripta n, has had relief in the past. Limited use is ok with suboxone. Health Concerns Section Related Observation LastModified by Organization Detai ls LastModified Time None Recorded Concern Status LastModified by Organization Details LastModified Time None Recorded Advance Directives Directive N: Payers Encounter Date Sequence Insurance Name Policy Number Policy Borja Covered Member ID Borja Member ID Guarantor Name 03/17/2016 1 [facility] CARE[employer]US [place] (MEDICAID HMO) [id number] Ervin Mcnmaara [id number] Ervin Mcnamara 03/17/2016 1 [employer] Ervin Mcnamara [id number] Ervin Mcnamara 04/05/2016 1 [facility] [employer] - CAREPLUS A (MEDICAID HMO) [id number] Ervin Mcnamara [id number] Ervin Mcnamara 04/05/2016 1 [employer] Ervin Mcnamara [id number] Ervin Mcnamara 05/06/2016 1 [facility] C[facility] (MEDICAID O) Ervin Mcnamara [id number] Ervin Mcnamara 08/01/2016 1 [facility] (MEDICAID HMO) Ervin Mcnamara [id number] Ervin Mcnamara 08/05/2016 1 [facility] [employer] (MEDICAID HMO) Ervin Mcnamara [id number] Ervin Mcnamara Notes Date Note Type Note Provider Name a nd Address Organization Details Recorded Time 03/17/2016 text/html Patient denies CP, SOB, N/V, D/C, lightheadedness, fevers, and chills. Kalpesh Mooney MD [address] [place] [address], [phone], [facility] [employer] 03/17/2016 10:41:29 04/05/2016 text/html Patient denies CP, SOB, N/V, D/C, lightheadedness, fevers, and chills. Kalpesh Mooney MD [address] [place] [address], [phone], [employer] 04/05/2016 11:20:40 05/06/2016 text/html Presents for f/u neck pain and BPH. Patient did NOT get labs or PSA done. MRI of the neck was declined. EMG not yet done. Patient has been taking flomax. Urgency persisted but flow is greatly improved. Patient content however. Does not want further medication at this time. He will get labs done today. exam declined. Kalpesh Mooney MD [address] [place] [address], [phone], [facility] [employer] 05/06/2016 12:17:32 08/01/2016 text/html Patient is here today for a frontal migraine he developed last night. He says he has a hx of these headaches and has had good results from that. He has been nauseous as well. He has been taking ibuprofen 600mg for this. Roula Frias [address] [place] [address], [phone], [facility] [employer] 08/03/2016 10:27:40 08/05/2016 text/html Presents for f/u Migraine- 2 in two weeks. Sleep related. Sometimes better with ibuprofen. Often no relief with imitrex. Gets nausea and emesis with the BARAJAS. 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 Can last hours. No vision change. No numbness or weakness. BPH- urination improved on the flomax. Still gest urgency when at work. Feels like her empty's his bladder completely. Does not want to adjust medication at this time. Kalpesh Mooney MD [address] [place] [address], [phone], [facility] 08/05/2016 10:41:01
== END 2025-02-14 19:32 | disposition left against medical advice (07) ==
LOC: HO.ED 19:26
PROVIDERS: Physician Assistant Medical; Emergency Provider Emergency Medicine; PCP Family Medicine
DX: R07.89 Other chest pain (principal); M79.602 Pain in left arm; Z03.818 Encounter for observation for suspected exposure to other biological agents ruled out; Z79.899 Other long term (current) drug therapy
CPT/HCPCS: 0241U; 71046; 80053; 83735; 84484; 85025; 85610; 93005; 99281; 99283

== ENCOUNTER → 2025-02-14 12:10 | Outpatient (BNV) | payer MEDICAID, SELFPAY | PROVIDERS: Emergency Provider Emergency Medicine; PCP Family Medicine; Visit Provider Internal Medicine | DX: R07.9 Chest pain, unspecified (principal) | CPT/HCPCS: 93010 ==

== ENCOUNTER → 2025-02-14 12:10 | Outpatient (BNV) | payer SELFPAY | PROVIDERS: PCP Family Medicine; Visit Provider Radiology Diagnostic Radiology | DX: R07.9 Chest pain, unspecified (principal) | CPT/HCPCS: 71046 ==

== ENCOUNTER 2025-07-07 09:45 | Outpatient (REF) | payer OTHER, SELFPAY ==
[2025-07-07 11:49] LABS: Cholesterol 177 mg/dL (<200); HDL Cholesterol 63 mg/dL (>40); Triglycerides 48 mg/dL (<150)
[2025-07-07 12:10] LABS: HBS Num1 0.88 mIU/mL (0-7.99); HBc Num1 0.30 S/CO (0.00-0.79); HBsAGNum1 0.53 S/CO (0.00-0.99); HIV Num 1 0.05 S/CO (0.00-0.99); Hepatitis B Surface Antigen Negative (Negative); ~HepC Num1 0.15 S/CO (0.00-0.79); ~Hepatitis B Surface Antibody NONREACTIVE (Nonreactive); ~Hepatitis C Antibody Nonreactive (Nonreactive)
== END 2025-07-07 09:46 | disposition home or self-care (01) ==
LOC: HO.HHCL 09:45
PROVIDERS: PCP Nurse Practitioner; Visit Provider Nurse Practitioner
DX: Z11.59 Encounter for screening for other viral diseases (principal); Z11.4 Encounter for screening for human immunodeficiency virus [HIV]; Z13.89 Encounter for screening for other disorder
CPT/HCPCS: 36415; 80061; 86704; 86706; 86803; 87340; 87389

== ENCOUNTER 2025-10-02 12:30 | Outpatient (AMB) | payer OTHER, SELFPAY ==
--- NOTE | 2025-10-02 12:43 | A.OFFVIS_ITS ---
Vital Signs 10/02/25 12:52 Height 6 ft Weight 131 lb 13.383 oz BMI 17.9 BP 150/88 H Blood Pressure Location Lt brachial Position Sitting Pulse 108 H Intake Visit Reasons: Positive Cologuard test Intake Note: New patient in office today for colonoscopy screening. CC: Patient denies having any GI symptoms. Music Box [employer] Required: No Accompanied by: Self / Same As Patient Allergies No Known Drug Allergies Allergy (Unknown, Verified 10/02/25 13:01) none shellfish derived Allergy (Unknown, Verified 02/14/25 12:08) Anaphylaxis, Itching, Swelling HPI HPI Positive Cologuard test: Details: 50-year-old male here for preprocedural meeting to discuss a screening colonoscopy in the context of a positive Cologuard. He is referred by [facility]. PMX Migraines Smoker Substance use disorder-on Suboxone Chronic neck pain Anxiety BPH * SURGICAL HISTORY Pt denies * ALLERGIES : NKDA shellfish allergy * [facility] LABS: Laboratory Tests 02/14/25 12:20 WBC 5.0 Hgb 14.1 Hct 41.8 L MCV 88.2 MCH 29.7 Plt Count 223 Estimated GFR > 60 Total Bilirubin 0.4 AST 32 ALT 15 Alkaline Phosphatase 62 TODAY'S VISIT This is his first colonoscopy. He had a postiive Cologuard. No bowel or upper GI problems. He denies any cardiac or respiratory problems. He is naive to anesthesia or sedation. No ID problems. No known FHX crc or polyps. [facility] Medical History Migraine Anxiety Substance use disorder Nicotine dependence, cigarettes, uncomplicated BPH (benign prostatic hyperplasia) Social History Alcohol intake: never Patient Tobacco Use Status: Current everyday Tobacco user Cigarette Packs Per Day: 1 Use of substances other than those prescribed or required for medical reasons: Yes Substance Use Type: Marijuana Review of Systems Const Denies fatigue, Denies fever(s), Denies night sweats, Denies poor appetite and Denies weight loss ENT Reports Normal hearing present, Denies dysphagia, Denies odynophagia, Denies throat swelling and Denies tongue swelling Card Reports no additional complaints Resp Reports no additional complaints GI Details: Denies abdominal pain, Denies melena, Denies bloating, Denies hematochezia, Denies constipation, Denies GI cramping, Denies dysphagia, Denies excessive flatus, Denies early satiety, Denies heartburn, Denies diarrhea, Denies nausea, Denies odynophagia, Denies vomiting and Denies hematemesis Skin/Breast Denies pruritus, Denies lesions, Denies rash and Denies jaundice Neuro Reports Normal hearing present and Denies Abnormal speech present Endo Denies fatigue Aller/Immun Denies throat swelling and Denies tongue swelling Physical Exam Vital Signs: Last Vital Signs Pulse 108 H 10/02/25 12:52 BP 150/88 H 10/02/25 12:52 BMI result Body Mass Index 17.9 Const General: cooperative, no acute distress, well developed and well groomed Nutritional Appearance: well nourished and thin Orientation/consciousness: oriented to person, oriented to place and oriented to time Limitations: No language barrier HEENT Head: Yes normocephalic and Yes atraumatic Eyes General: appearance normal, both eyes and all related structures Pupils: Equal, round and reactive pupils present Neck Neck: Yes normal visual inspection and Yes no lymphadenopathy Thyroid: Thyroid normal Resp Effort & Inspection: normal respiratory effort and able to speak in complete sentences Auscultation: clear to auscultation bilaterally Cardio Rate: regular rate Rhythm: regular rhythm Heart sounds: Normal, physiologic split S2 sound present Peripheral pulses: radial pulses present and posterior tibial pulses present GI Inspection: No distended and No Abdominal panniculus present Palpation (GI): Soft to palpation, nontender, no guarding, not rigid and No hepatosplenomegaly present Percussion: Yes normal to percussion Auscultation: normal bowel sounds Rectal Exam - Male: Yes deferred Skin General skin exam: no rashes or lesions noted, turgor normal, skin not dry, no jaundice, No spider nevi and no striae Rashes: no rashes Nails: normal Neuro General: oriented to person, oriented to place and oriented to time Cranial nerves: Yes Equal, round and reactive pupils present and Yes Normal hearing present Speech: No Abnormal speech present Extrem General: Yes normal to inspection, No clubbing, No cyanosis and No edema Psych Appearance: grossly normal and well kempt Mental Status: mental status grossly normal Speech and movement: Normal speech and movement present Affect: Anxious affect present Attitude: cooperative Thought process: Normal thought process present and not confabulating Thought content: Normal thought content present Insight: Fair insight present (Psych) Judgement: Fair judgement present (Psych) Assessment & Plan Assessment & Plan (1) Opioid dependence on agonist therapy: Comment: ON SUBOXONE Code(s): F11.20 - Opioid dependence, uncomplicated Category: Medical (2) Pre-op examination: Code(s): Z01.818 - Encounter for other preprocedural examination Category: Medical Plan This is his first colonoscopy. He had a postiive Cologuard. No bowel or upper GI problems. He denies any cardiac or respiratory problems. He is naive to anesthesia or sedation. No ID problems. No known FHX crc or polyps. Orders: Referrals GI Procedure Notification F11.20 - Opioid dependence, uncomplicated, Z01.818 - Encounter for other preprocedural examination Medications: New sodium,potassium,mag sulfates 17.5-3.13-1.6 gram (Suprep Bowel Prep Kit) 480 mL orally; FOR COLONOSCOPY PREP 354 mL 0RF Coding Level of Care Code New Pt Level 3 (54627) Diagnoses Opioid dependence on agonist therapy F11.20 Pre-op examination Z01.818
[2025-10-02 12:52] VITALS: BP 150/88; PULSE 108; BMI 17.9
== END 2025-10-02 13:28 | disposition home or self-care (01) ==
LOC: HO.HGI 12:31
PROVIDERS: PCP Nurse Practitioner; Visit Provider Nurse Practitioner
DX: Z01.818 Encounter for other preprocedural examination (principal); Z12.11 Encounter for screening for malignant neoplasm of colon; R19.5 Other fecal abnormalities
CPT/HCPCS: 99203

== ENCOUNTER → 2025-10-02 12:30 | Outpatient (BNVA) | payer OTHER, SELFPAY | PROVIDERS: PCP Nurse Practitioner; Visit Provider Nurse Practitioner | DX: Z01.818 Encounter for other preprocedural examination (principal); F11.20 Opioid dependence, uncomplicated | CPT/HCPCS: 99202 ==